=== PATIENT | male | born 1975 | race Caucasian/White ===

== ENCOUNTER 2019-11-04 07:33 | Outpatient (CLI) | payer BC, SELFPAY ==
[2019-11-10 18:37] LABS: SARS-CoV-2 RNA Undetected (Undetected)
== END 2019-11-04 07:53 ==
PROVIDERS: PCP Family Medicine; Visit Provider Family Medicine
DX: Z11.59 Encounter for screening for other viral diseases (principal)
CPT/HCPCS: U0003

== ENCOUNTER 2020-10-25 10:25 | Outpatient (REF) | payer OTHER, SELFPAY ==
[2020-10-25 12:40] LABS: Abs Immature Grans 0.02 10^3/uL (0.0-0.06); Absolute Basophil Count 0.07 10^3/uL (0.0-0.2); Absolute Lymphocyte Count 2.07 10^3/uL (1.2-3.4); Absolute Monocyte Count 0.63 10^3/uL (0.1-0.8); Absolute Neutrophil Count 5.55 10^3/uL (1.2-6.7); Basophils % 0.8; Eosinophils % 1.2; HCT 46.8 % (40.0-50.0); HGB 15.4 g/dL (13.5-17.5); Immature Grans % 0.2; Lymphocytes % 24.5; MCH 33.3 pg (27.0-33.0); MCHC 32.9 % (32.0-36.0); MCV 101.3 fL (80-95); MPV 11.3 fL (8.0-11.0); Monocytes % 7.5; Neutrophils % 65.8; Nucleated RBC 0 %; Platelet Count 230 10^3/uL (130-400); RBC 4.62 10^6/uL (4.36-5.78); RDW 12.7 % (11.8-14.1); RDW-SD 47.8 fL; WBC 8.44 10^3/uL (4.4-10.8)
[2020-10-25 12:55] LABS: ALT 43 U/L (16-63); AST 15 U/L (15-37); Alkaline Phosphatase 96 U/L (46-116); Anion Gap 9.5 mmol/L (3-11); BUN 13 mg/dL (7-18); Bilirubin, Total 0.4 mg/dL (0.2-1.0); CO2 28.5 mmol/L (21.0-32.0); Calcium 9.2 mg/dL (8.5-10.1); Calculated LDL 112 mg/dL (<100); Chloride 105 mmol/L (98-107); Cholesterol 165 mg/dL (<200); Glucose 97 mg/dL (74-106); HDL Cholesterol 40 mg/dL (40-60); Potassium 4.3 mmol/L (3.5-5.1); Sodium 143 mmol/L (136-145); Total Protein 7.4 g/dL (6.4-8.2); Triglyceride 68 mg/dL (<150)
[2020-10-25 13:12] LABS: INR 0.9 (0.9-1.1); PTT Activated 26.4 sec (21.0-27.5); Prothrombin Time 9.3 sec (9.3-11.0)
[2020-10-25 13:27] LABS: Hemoglobin A1C 5.7 % (<5.7)
[2020-10-26 10:26] LABS: Vitamin B12 367 pg/mL (193-986)
[2020-10-26 10:35] LABS: HIV-1/2 Ag & Ab Screen Negative (Negative)
[2020-10-26 17:21] LABS: Folate >24.0 ng/mL (See Note)
== END 2020-10-25 10:26 | disposition home or self-care (01) ==
LOC: LBN 10:25
PROVIDERS: PCP Nurse Practitioner Family; Visit Provider Nurse Practitioner Family
DX: Z00.00 Encounter for general adult medical examination without abnormal findings (principal); Z13.1 Encounter for screening for diabetes mellitus; Z13.220 Encounter for screening for lipoid disorders; I10 Essential (primary) hypertension; R58 Hemorrhage, not elsewhere classified
CPT/HCPCS: 80053; 80061; 87389; 82607; 82746; 83036; 85025; 85610; 85730

== ENCOUNTER 2021-04-05 18:33 | Outpatient (REF) | payer OTHER, SELFPAY ==
[2021-04-07 01:13] LABS: COVID-19 RT-PCR UVMMC Result Negative (Negative)
== END 2021-04-05 18:34 | disposition home or self-care (01) ==
LOC: LBN 18:33
PROVIDERS: PCP Nurse Practitioner Family; Visit Provider Nurse Practitioner Family
DX: Z20.822 Contact with and (suspected) exposure to COVID-19 (principal)
CPT/HCPCS: U0003

== ENCOUNTER 2021-05-31 15:21 | Outpatient (REF) | payer OTHER, SELFPAY ==
[2021-06-02 01:13] LABS: COVID-19 RT-PCR UVMMC Result Negative (Negative)
== END 2021-05-31 15:22 | disposition home or self-care (01) ==
LOC: LBN 15:21
PROVIDERS: PCP Nurse Practitioner Family; Visit Provider Nurse Practitioner Family
DX: Z20.822 Contact with and (suspected) exposure to COVID-19 (principal)
CPT/HCPCS: U0003

== ENCOUNTER 2021-07-15 18:39 | Outpatient (REF) | payer OTHER, SELFPAY ==
[2021-07-16 20:19] LABS: COVID-19 RT-PCR UVMMC Result Negative (Negative)
== END 2021-07-15 18:40 | disposition home or self-care (01) ==
LOC: LBN 18:39
PROVIDERS: PCP Nurse Practitioner Family; Visit Provider Physician Assistant Medical
DX: Z20.822 Contact with and (suspected) exposure to COVID-19 (principal)
CPT/HCPCS: U0003

== ENCOUNTER 2021-07-16 05:58 | Day surgery (SDC) | payer OTHER, SELFPAY ==
[2021-07-16 06:25] VITALS: BP 149/95; PULSE 71; RESP 16; TEMP 37; O2SAT 99
[2021-07-16 06:38] LABS: Source Nasal/Nares
[2021-07-16] MEDS: Lactated Ringers 1,000 ML 80 ML IV (06:49)
--- NOTE | 2021-07-16 06:59 | W.ANESPRE ---
General Info Date of Service Date Performed: 07/16/21 Height: 5 ft 11 in Weight: 1121.8 kg Body Mass Index (BMI): 344.9 Surgical Procedure: Operation Date: 07/16/21 07:40 Proposed Procedure Side Surgeon p Wrist ECTR Right David Ceron MD Meds Allergies and Home Medications Allergies Allergy/AdvReac Type Severity Reaction Status Date / Time succinylcholine AdvReac Pseudocholinesterase Verified 07/16/21 07:02 Deficiency Home Medication Medication Instructions Recorded propranolol 10 mg tablet 10 mg PO BID #30 tab 04/29/21 amlodipine 5 mg tablet 5 mg PO DAILY #90 tab 07/11/21 valacyclovir 1 gram tablet 1,000 mg PO TID PRN 07/15/21 Current Visit Medications: Current Medications Generic Name Dose Route Start Last Admin Trade Name Freq PRN Reason Stop Dose Admin Ringer's Solution 1,000 mls @ 80 mls/hr 07/16/21 06:00 07/16/21 06:49 IV 07/25/21 23:59 80 mls/hr INFUSION TRICIA Administration Cefazolin Sodium/Dextrose 2 gm in 50 mls @ 100 mls/hr 07/16/21 06:00 Ancef Duplex IVPB 07/16/21 23:59 PREOP TRICIA IV Miscellaneous Supplies 1 each 07/16/21 06:00 Iv Access IV 07/25/21 23:59 DIRECTED TRICIA Sodium Chloride 0 ml 07/16/21 06:00 Normal Saline Flush 10 Ml Syr IV 07/25/21 23:59 PRN PRN Sodium Chloride 0 ml 07/16/21 06:00 Normal Saline 10 Ml Vial IJ 07/25/21 23:59 DIRECTED PRN Sterile Water 0 ml 07/16/21 06:00 Water,Injection,Sterile 10 Ml Vial IJ 07/25/21 23:59 DIRECTED PRN PFSH Active Problems Active Problems: Problem Status Onset Code Essential hypertension I10 Hyperlipidemia E78.5 Prediabetes R73.03 Bilateral carpal tunnel syndrome G56.03 Cubital tunnel syndrome on left G56.22 Medical History Medical History (Updated 07/16/21 @ 06:41 by Jasmin Mullins) Cubital tunnel syndrome on right Herpes zoster Frequent episodes from [id number], about 4/year 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 Surgical History Surgical History H/O right inguinal hernia repair S/P eye surgery Right eye for strabismus Tobacco Smoking/Tobacco Use Status: Former Tobacco Use Alcohol Alcohol Intake: current Alcohol intake frequency: a few times a month Alcohol type: beer Substance Use Substance use: Never Substance use type: does not use Vital Signs and Lab Results Vital Signs Most Recent Vital Signs in EMR: Most Recent Vital Signs Temp Pulse Resp BP Pulse Ox 37.0 C 71 16 149/95 H 99 07/16/21 06:25 07/16/21 06:25 07/16/21 06:25 07/16/21 06:25 07/16/21 06:25 Lab Results Blood Type / Crossmatch: No Data to Display Complete Blood Count: No Data to Display Complete Metabolic Panel: No Data to Display Liver Function Panel: No Data to Display Coagulation Panel: No Data to Display Cardiac Panel: No Data to Display Arterial Blood Gas: No Data to Display Venous Blood Gas: No Data to Display Pancreas Panel: No Data to Display Thyroid Panel: No Data to Display Infectious Disease: Coronavirus 2019 Source Nasal/Nares 07/16/21 06:30 07/16/21 Blood Cultures: No Data to Display Toxicology Panel: No Data to Display Anesthesia Assessment and Plan Anesthesia History Personal History: Pseudocholinesterase Deficiency Family History: No Family History of Anesthesia Complications Exercise Tolerance Exercise Tolerance: Metabolic Equivalents>4 Pertinent Negatives Pertinent Negatives: No Symptoms of GERD, No Major Cardiovascular Symptoms or Complaints, No Major Pulmonary Symptoms or Complaints and No History of CVA/TIA Cardiac & Pulmonary Exam Cardiac Exam: Normal S1/S2 Heart Sounds Pulmonary Exam: Clear Bilateral Breath Sounds Implantable Cardiac Device Does patient have a Pacemaker or an ICD?: No Airway Exam Known Difficult Airway: No Mallampati Class: 1 Mouth Opening: Normal (> 3cm) Thyromental Distance: Greater than 3 cm Neck Range of Motion: Full ROM Neck Circumference: Normal Teeth Condition: Normal Dentition ASA Classification ASA Score: ASA 2 Emergency Case?: No NPO Status NPO Status: NPO Clears >2 hours, Solids >8 hours Anesthesia Plan Resuscitation Status: Full Code Anesthesia Technique: General Anesthesia Airway Planned: Natural Airway Monitors Used: Standard Monitors
[2021-07-16 07:04] VITALS: BMI 344.9
[2021-07-16 07:16] LABS: COVID-19 PCR Negative (Negative)
--- NOTE | 2021-07-16 07:21 | HPE_ITS ---
Assessment and Plan Assessment and plan (1) Bilateral carpal tunnel syndrome: Status: Chronic Assessment and plan: Jeremy is a 46-year-old who has carpal tunnel syndrome on both sides. Is here today for endoscopic carpal tunnel release of the right side. Once again I reviewed the surgery with him in detail and his questions were answered. I discussed the risk of the procedure to include bleeding, infection, pain, stiffness, damage to nerves and vessels, damage to muscles and tendons, injury to the nerve, need for repeat procedures, incomplete release. Despite these risk, he elects to proceed. History of Present Illness Narrative: Jeremy is a 46-year-old who is here today for his right carpal tunnel syndrome. Please see the previous office note for complete detailed history. He has diagnosed carpal tunnel syndrome on the right side. He is here for carpal tunnel release. Review of Systems All systems reviewed & are unremarkable except as noted in HPI and below PFSH All Active Problems Essential hypertension (Chronic) Hyperlipidemia (Chronic) Prediabetes (Chronic) Bilateral carpal tunnel syndrome (Chronic) Cubital tunnel syndrome on left (Acute) Medical History Cubital tunnel syndrome on right Herpes zoster Frequent episodes from [id number], about 4/year Right-sided Block's palsy Surgical History H/O right inguinal hernia repair S/P eye surgery Right eye for strabismus Family History Mother , 67 of metastatic bresat cancer Breast cancer Father Multiple sclerosis Brother Substance abuse Alcohol abuse Brother Substance abuse Alcohol abuse Daughter No problems noted. 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 [employer] Do you think of yourself as: lesbian/kaufman/homosexual What is your relationship status?: Panel score (0-1 are the most socially isolated patients): 1 Do you feel safe at home: Yes Do you feel safe in your relationship?: Yes Meds Allergies and Home Medications Allergies Allergy/AdvReac Type Severity Reaction Status Date / Time succinylcholine AdvReac Pseudocholinesterase Verified 07/16/21 07:02 Deficiency Home Medications Medication Instructions Recorded Confirmed Type propranolol 10 mg tablet 10 mg PO BID #30 tab 04/29/21 07/16/21 Rx amlodipine 5 mg tablet 5 mg PO DAILY #90 tab 07/11/21 07/16/21 Rx valacyclovir 1 gram tablet 1,000 mg PO TID PRN 07/15/21 07/16/21 History Exam Resp Effort & Inspection: normal respiratory effort Auscultation: clear to auscultation bilaterally Cardio Rate: regular rate Rhythm: regular rhythm Results Labs Labs: Laboratory Results - last 24 hr 07/16/21 06:30 COVID-19 Source Nasal/Nares SARS-CoV-2 (PCR) Negative Last Vital Signs Temp 37.0 C 07/16/21 06:25 Pulse 71 07/16/21 06:25 Resp 16 07/16/21 06:25 BP 149/95 H 07/16/21 06:25 Pulse Ox 99 07/16/21 06:25
--- NOTE | 2021-07-16 07:24 | W.PM.DSUDISC ---
Discharge Plan Disposition Patient Disposition: HOME Condition: Good Discharge Details Reason For Visit: Right Carpal Tunnel SYndrome Attending Provider: David Ceron Primary Care Provider: Destiny Aguilar Home Meds and New Rx's Prescriptions: New acetaminophen 500 mg tablet 1,000 mg PO Q8H PRN (Reason: pain) Qty: 60 3RF ibuprofen 600 mg tablet 600 mg PO TID PRN (Reason: pain) Qty: 60 3RF Continued propranolol 10 mg tablet 10 mg PO BID Qty: 30 5RF amlodipine 5 mg tablet 5 mg PO DAILY Qty: 90 4RF valacyclovir 1 gram tablet 1,000 mg PO TID PRN0RF Rx Instructions: Take 1 tablet by mouth three times a day for 7 days Discharge Instructions Stand Alone Forms: Jie Croft Tunnel Release Activity:: Elevate Remove Dressings/Wound Care:: 48 hours Shower/Bathe:: 48 hours Diet:: As Tolerated Discharge Orders Discharge Orders: Discharge Order (Routine); Ordered 07/16/21 Ordered By: David Ceron DS: Diagnosis Discharge Diagnosis (1) Bilateral carpal tunnel syndrome: Status: Chronic
[2021-07-16] MEDS: ceFAZolin 2 GM/50 ML BAG IVPB (07:29)
[2021-07-16] MEDS: Sodium Bicarbonate 50 MEQ/50 ML VIAL (07:43)
--- NOTE | 2021-07-16 07:49 | W.ANESPOSTOP ---
Postoperative Evaluation Date, Time and Location Date Performed: 07/16/21 Time Performed: 07:49 Patient Location: Day Surgery Unit Vital Signs Most Recent Imported Vital Signs: Most Recent Vital Signs Temp Pulse Resp BP Pulse Ox 37.0 C 71 16 149/95 H 99 07/16/21 06:25 07/16/21 06:25 07/16/21 06:25 07/16/21 06:25 07/16/21 06:25 Most Recent Manually Entered Vital Signs: Adult Blood Pressure: 110/63 Heart Rate: 66 Respirations: 10 Oxygen Saturation (%): 95 Temperature (C): 36.3 C Pain Score (0-10 Scale): 0 Pain Score Most Recent Pain Score: Most Recent Pain Score Pain Level 0 07/16/21 06:25 Assessment Mental Status: Awake (Alert & Oriented to Patient Baseline) Airway and Respiratory Function: Patent airway with normal (patient baseline) respiratory exam Cardiovascular Function: Hemodynamically Stable Hydration Status: Adequately Hydrated Nausea & Vomiting: No Nausea or Vomiting Pain: Pt. Denies Any Pain Peripheral Nerve Block: Patient did not receive a nerve block
[2021-07-16 07:50] VITALS: BP 110/63; PULSE 66; RESP 10; TEMPC 36.3; O2SAT 95
[2021-07-16 07:52] VITALS: BP 110/63; PULSE 66; RESP 16; TEMP 36.7; O2SAT 95
[2021-07-16 08:19] VITALS: BP 135/89; PULSE 63; RESP 16; TEMP 37; O2SAT 98
--- NOTE | 2021-07-16 09:25 | ROE_ITS ---
Date of service: 07/16/21 Time of Service: 07:40 Operative Note Operative Note PRE-OP DIAGNOSIS: Right Carpal Tunnel Syndrome POST-OP DIAGNOSIS: same PROCEDURE: Right Endoscopic Carpal Tunnel Release SURGEON: David Ceron ANESTHESIA TYPE: General:No Airway Refer to Anesthesia Record ESTIMATED BLOOD LOSS: 0 PATHOLOGY: none sent TOURNIQUET TIME: 4 COMPLICATIONS: None Patient was transported to: same day Patient's condition: stable Indications: I have seen Jeremy in clinic for symptoms of carpal tunnel syndrome. The numbness, tingling, and pain limited function. Clinical exam findings with nerve conduction tests confirmed the diagnosis of carpal tunnel syndrome. Nonoperative measures such as bracing, time, activity modifications had been tried but disability and pain persisted. I discussed carpal tunnel release with the patient. I reviewed the risks of the procedure to include, but not limited to, bleeding, infection, pain, stiffness, incomplete release, damage to nerves or vessels, persistent numbness, recurrence. Despite these risks, the patient elected to proceed. Findings: There was tightened carpal tunnel. This was dilated and released successfully with the endoscopic with increased space within the tunnel. The antebrachial fascia was released proximally freeing the median nerve at the wrist. Procedure Description: Jeremy was greeted in the preoperative holding area where the correct side was identified and marked. The consent was reviewed with the patient and signed. The history and physical was updated. All questions were answered. Jeremy was taken back to the operating room. The patient was placed into the supine position on the operating room table with the right arm on an arm board. A nonsterile tourniquet was placed high onto the arm. All bony prominences were well padded. Prophylactic antibiotics in the form of Cefazolin were administered. The right arm was then prepped with Chloraprep and draped in a standard fashion with stockinette and extremity drape. A timeout to confirm correct identity, side and site, procedure, allergies, anesthesia, and medical concerns was performed. The surgical site was marked in the volar wrist creases in line with the radial border of the fourth ray. This area was anesthetized with approximately 6cc of 1% Lidocaine. The limb was then exsanguinated with an Esmarch. The skin was incised with a 15 blade, approximately 1cm. The skin only was cut and the deeper tissue was dissected bluntly with a tenotomy scissor, avoiding passing nerve and venous structures. The fascia was penetrated and opened bluntly. A two-prong skin hook was placed under this proximal fascial edge. A series of hamate finders were used to identify and dilate the carpal tunnel. Synovial elevator was used to free synovial attachments to the underside of the transvers e carpal ligament. My thumb was kept in the palm to henrry the distal extent of the carpal tunnel and correctly position the hand. The Microaire endoscope was inserted without difficulty and without resistance. Excellent visualization showed horizontally running fibers of the transverse carpal ligament (TCL). The distal extent of the TCL was visualized and the end of the scope palpated with the thumb. The blade was elevated and withdrawn from distal to proximal. The TCL was split into two flaps. The endoscope was reinserted to confirm complete release and any remnant ligament was incised. The scope was withdrawn and the proximal aspect of the carpal tunnel was grossly inspected and appeared release with the median nerve visible. The antebrachial fascia at the level of the wrist was then freed from the overlying skin and then the underlying median nerve with blunt dissection. This was transected longitudinally for about 3cm proximal to the wrist incision. The wound was then irrigated with easy flow of irrigant distally and proximally. The incision was closed with a single 4-0 Nylon suture. The wound was dressed with Xeroform, Gauze, Kerlix and Srikanth. The tourniquet was deflated with the initial dressing and held with some pressure. Blood flow returned easily to all digits with capillary refill less than 2 seconds. The patient tolerated the procedure well and was returned to the Same Day Surgery area in a stable condition suffering no known complication.
== END 2021-07-16 08:36 | disposition home or self-care (01) ==
PROVIDERS: PCP Nurse Practitioner Family; Visit Provider Student in an Organized Health Care Education/Training Program
PROC: 01N54ZZ Release Median Nerve, Percutaneous Endoscopic Approach (ICD-10-PCS; CPT 29848; principal; 2021-07-16 07:30)
DX: G56.03 Carpal tunnel syndrome, bilateral upper limbs (principal); R73.03 Prediabetes; E78.5 Hyperlipidemia, unspecified; I10 Essential (primary) hypertension
CPT/HCPCS: 29848; 87635; J0690; J2001

== ENCOUNTER 2022-05-26 12:40 | Outpatient (CLI) | payer OTHER, SELFPAY ==
--- NOTE | 2022-05-26 09:30 | DI.RAD_ITS ---
Exam(s) XR HIP RT COMPLETE AP PELVIS EXAM: XR HIP RT COMPLETE AP PELVIS CLINICAL HISTORY: Rt hip pain, M25.551, twisted and felt like hip dislocated, ? pelvic fx. TECHNIQUE: 2D digital imaging was performed of the right hip. Two images were obtained. AP pelvis a nd lateral right hip views were obtained. COMPARISON: No exams were available for comparison FINDINGS: BONES: No acute fracture is present. No bony destructive lesion is seen. JOINTS: No dislocation present. There is mild narrowing of the superior joint spaces of the hips bila terally. SOFT TISSUE: Vascular calcifications are present. IMPRESSION: No acute fracture or dislocation. DATA REPOSITORY: RADIATION DOSE DELIVERED:
== END 2022-05-26 13:00 ==
LOC: DI 12:41
PROVIDERS: PCP Nurse Practitioner Family; Visit Provider Family Medicine
DX: M25.551 Pain in right hip (principal)
CPT/HCPCS: 73502

== ENCOUNTER 2022-07-02 13:47 | Outpatient (REF) | payer OTHER, SELFPAY ==
[2022-07-02 13:57] LABS: ALT 68 U/L (16-63); AST 27 U/L (15-37); Alkaline Phosphatase 95 U/L (46-116); Anion Gap 9.5 mmol/L (3-11); BUN 12 mg/dL (7-18); Bilirubin, Total 0.4 mg/dL (0.2-1.0); CO2 27.5 mmol/L (21.0-32.0); Calcium 9.4 mg/dL (8.5-10.1); Chloride 106 mmol/L (98-107); Estimated GFR 92.26 (mL/min/1.73m2); Glucose 98 mg/dL (74-106); Hemoglobin A1C 5.9 % (<5.7); Potassium 4.4 mmol/L (3.5-5.1); Sodium 143 mmol/L (136-145); Total Protein 7.4 g/dL (6.4-8.2)
[2022-07-03 10:28] LABS: HIV-1/2 Ag & Ab Screen Negative (Negative)
== END 2022-07-02 13:48 | disposition home or self-care (01) ==
LOC: LBN 13:47
PROVIDERS: PCP Nurse Practitioner Family; Visit Provider Nurse Practitioner Family
DX: I10 Essential (primary) hypertension (principal); R73.03 Prediabetes; Z11.4 Encounter for screening for human immunodeficiency virus [HIV]
CPT/HCPCS: 80053; 87389; 83036; 84443

== ENCOUNTER 2023-09-14 10:52 | Outpatient (CLI) | payer OTHER, SELFPAY ==
[2023-09-14 11:55] LABS: Bilirubin Negative (Negative); Blood Negative (Negative); Clarity Turbid (Clear); Glucose Negative (Negative); Ketones Negative (Negative); Leukocyte Esterase Negative (Negative); Nitrite Negative (Negative); Specific Gravity 1.025 (1.005-1.025); Urobilinogen 0.2 mg/dL (Up to 0.2)
== END 2023-09-14 10:53 | disposition home or self-care (01) ==
LOC: LBO 10:53
PROVIDERS: PCP Nurse Practitioner Family; Visit Provider Family Medicine
DX: R30.0 Dysuria (principal); R10.2 Pelvic and perineal pain
CPT/HCPCS: 81003

== ENCOUNTER → 2023-09-25 00:25 | Outpatient (CLI) | payer OTHER, SELFPAY ==
--- NOTE | 2023-09-25 06:30 | DI.CT_ITS ---
Exam(s) CT ABDOMEN PELVIS W EXAM: CT ABDOMEN PELVIS W CLINICAL HISTORY: inguinal hernia?, CHRONIC PELVIC PAIN, R10.2, G89.29. TECHNIQUE: Imaging Protocol: Axial computed tomography images with coronal and sagittal reformatted images were created and reviewed CONTRAST MATERIAL: Intravenous: Omnipaque 350 Contrast volume:100 ml Oral: yes COMPARISON: No exams were available for comparison FINDINGS: ABDOMEN and PELVIS: Lung Bases: No acute findings. Liver: Normal density. No suspicious mass. Gallbladder and biliary tract: No radiodense calculus. No biliary dilation. Pancreas: Normal density. No abnormal calcifications or inflammatory process. No evidence of mass. Spleen: Normal. Kidneys: Normal size, contour and axis. No radiodense stones. No obstructive uropathy. No suspicious masses seen. Adrenal glands: No masses seen. Vasculature: Abdominal aorta non-dilated. Soft tissues: Fat containing left inguinal hernia. Bladder: No gross wall thickening. No calculi.No focal mass. Bowel: No obstruction. No bowel wall thickening. Appendix normal. Peritoneal cavity: No ascites. No focal collection. No mesenteric inflammatory response. Bones: Unremarkable for age. Reproductive organs: Unremarkable. Lymph nodes: No pathologically enlarged lymph nodes. IMPRESSION:: Small fatty containing left inguinal hernia. RADIATION DOSE DELIVERED: 1,575.25mGy.cm Total DLP DATA REPOSITORY: All CT scans at this facility are submitted to the National Radiology Data Registry (NRDR) Dose Index Registry (DIR) with the [employer] (ACR). RADIATION OPTIMIZATION: All CT scans at this facility use at least one of these dose optimization te chniques: automated exposure control; mA and/or kV adjustment per patient size (includes targeted exa ms where dose is matched to clinical indication); or iterative reconstruction.
[2023-09-25] MEDS: Barium Sulfate 2% W/V-Berry Smoothie 450 ML BTL PO ×2 (08:56→08:57)
[2023-09-25 09:22] LABS: Abs Immature Grans 0.02 10^3/uL (0.0-0.06); Absolute Basophil Count 0.07 10^3/uL (0.0-0.2); Absolute Eosinophil Count 0.15 10^3/uL (0.0-0.7); Absolute Monocyte Count 0.64 10^3/uL (0.1-0.8); Basophils % 0.9 %; Eosinophils % 1.9 %; HCT 50.9 % (40.0-50.0); HGB 16.8 g/dL (13.5-17.5); Immature Grans % 0.3 %; Lymphocytes % 21.6 %; MCH 33.7 pg (27.0-33.0); MCV 102 fL (80-95); MPV 10.2 fL (8.0-11.0); Monocytes % 8.1 %; Neutrophils % 67.2 %; Platelet Count 212 10^3/uL (130-400); RBC 4.99 10^6/uL (4.36-5.78); RDW 13.2 % (11.8-14.1); RDW-SD 50.3 fL; WBC 7.88 10^3/uL (4.4-10.8)
[2023-09-25 09:25] LABS: ESR 12 mm/hr (0-15)
[2023-09-25 09:43] LABS: ALT 44 U/L (16-63); AST 18 U/L (15-37); Alkaline Phosphatase 104 U/L (46-116); Anion Gap 11.2 mmol/L (3-11); BUN 16 mg/dL (7-18); Bilirubin, Total 0.4 mg/dL (0.2-1.0); CO2 27.8 mmol/L (21.0-32.0); CREATININE 1.1 mg/dL (0.70-1.30); Calcium 9.1 mg/dL (8.5-10.1); Calculated LDL 114 mg/dL (<100); Chloride 104 mmol/L (98-107); Cholesterol 181 mg/dL (<200); Estimated GFR 81.78 (mL/min/1.73m2); Glucose 107 mg/dL (74-106); HDL Cholesterol 51 mg/dL (40-60); Potassium 4.2 mmol/L (3.5-5.1); Sodium 143 mmol/L (136-145); TSH (W/Ref FT4) 1.64 uIU/mL (0.36-3.74); Triglyceride 83 mg/dL (<150)
[2023-09-25 09:50] LABS: C-Reactive Protein 0.57 mg/dL (<or=0.5)
[2023-09-25 09:51] LABS: Hemoglobin A1C 5.6 % (<5.7)
[2023-09-25] MEDS: Omnipaque 350 MG/ML 100 ML BTL IJ (11:08)
[2023-09-25 18:33] LABS: PSA, Screening 1.3 ng/mL (<=3.5)
[2023-09-25 21:12] LABS: HBs Antibody, Quant 164.2 mIU/mL (See Note); Hep B Surface Ab Positive (See Note); Hepatitis B Core Antibody Negative (Negative); Hepatitis B Surface Antigen Negative (Negative)
[2023-09-25 21:16] LABS: HIV-1/2 Ag & Ab Screen Negative (Negative)
[2023-09-25 21:22] LABS: Hepatitis C Ab w Rflx HCV PCR Negative (Negative)
== END ==
PROVIDERS: PCP Nurse Practitioner Family; Visit Provider Nurse Practitioner Family
DX: R10.2 Pelvic and perineal pain (principal); G89.29 Other chronic pain; Z12.5 Encounter for screening for malignant neoplasm of prostate; Z11.59 Encounter for screening for other viral diseases
CPT/HCPCS: 36415; 80053; 80061; 84153; 85652; 86704; 86706; 86803; 87340; 87389; 74177; 83036; 84443; 85025; 86140; J3490

== ENCOUNTER 2024-11-21 09:45 | Outpatient (CLI) | payer OTHER, SELFPAY ==
[2024-11-21 13:13] LABS: Anion Gap 11.1 mmol/L (3-11); BUN 19 mg/dL (7-18); CO2 24.9 mmol/L (21.0-32.0); Calcium 9.4 mg/dL (8.5-10.1); Chloride 103 mmol/L (98-107); Estimated GFR 81.28 (mL/min/1.73m2); Glucose 104 mg/dL (74-106); Potassium 4.4 mmol/L (3.5-5.1); Sodium 139 mmol/L (136-145)
== END 2024-11-21 09:46 | disposition home or self-care (01) ==
PROVIDERS: PCP Nurse Practitioner Family; Referring Provider Nurse Practitioner Family; Visit Provider Nurse Practitioner Family
DX: I10 Essential (primary) hypertension (principal)
CPT/HCPCS: 36415; 80048

== ENCOUNTER 2025-02-17 11:45 | Day surgery (SDC) | payer OTHER, SELFPAY ==
--- NOTE | 2025-02-17 07:18 | W.PM.OP ---
Operative Note Operative Note PRE-OP DIAGNOSIS: Right middle trigger finger PROCEDURE: Right middle finger trigger release, CPT# 79006 SURGEON: Deni Riggins COMBINE INSPECTOR: None None ANESTHESIA TYPE: Local By Surgeon Refer to Anesthesia Record ESTIMATED BLOOD LOSS: 1 TOURNIQUET TIME: 0 COMPLICATIONS: None Patient was transported to: same day Patient's condition: stable Indications: Please see complete medical record for details. Procedure Description: In the operating room, the patient was positioned supine on the stretcher. All bony prominences were padded. Preoperative antibiotics were omitted. The correct patient, procedure, and side of the procedure were all verified prior to beginning. Local anesthesia was induced about the site with 10cc of 1% lidocaine containing epinephrine buffered with 1 cc of sodium bicarbonate. The Right hand was prepped and draped in the usual sterile fashion. Proper analgesia was confirmed. A small volar longitudinal approach was made overlying the middle finger MCP joint. Soft tissues were swept to the sides and retracted to expose the A1 ericka, which was thickened with small cysts on surface. The release was started centrally with a knife and completed at the proximal and distal margins with tenotomy scissors. Care was taken to protect the flexor tendons. The tendons were inspected and inact. Appropriate flexor tendon excursion was confirmed. The patient readily demonstrated full range of motion of the finger without triggering or mechanical sensation. The small incision was irrigated and then dried. Hemostasis was appropriate. The incision was closed using 3-0 nylon in a horizontal mattress fashion. Xeroform was applied followed by gauze and the hand was gently compressed with an Srikanth bandage. The patient tolerated local anesthesia without complication and was transferred out of the operating room in a stable condition. Date of Procedure: 02/17/25
--- NOTE | 2025-02-17 07:18 | W.PM.DSUDISC ---
Date of service: 02/17/25 Discharge Plan Disposition Patient Disposition: Home Condition: Stable Discharge Details Attending Provider: Deni Riggins Primary Care Provider: Destiny Aguilar Home Meds and New Rx's Prescriptions: Continued losartan 50 mg tablet 50 mg PO DAILY Qty: 90 3RF rosuvastatin 5 mg tablet 5 mg PO DAILY Qty: 90 4RF clotrimazole-betamethasone 1-0.05 % cream 1 applic topical BID 28 Days Qty: 45 3RF tirzepatide (weight loss) 7.5 mg/0.5 mL pen injector 7.5 mg subcut QWEEK Qty: 2 0RF Rx Instructions: for 4 weeks Discharge Instructions Additional Instructions: Surgery: Right middle finger trigger release 02/17/25 Activity: Protect hand for a few weeks. Gently increase finger motion and hand gripping to prevent stiffness. Recommend elevation to minimize swelling and discomfort. Prescriptions: None Resume home medicines, use [id number] Tylenol (acetaminophen) as needed for mild pain and ibuprofen (Motrin) or naproxen (Aleve) as needed for moderate to severe pain and swelling. Dressings: Leave dressing in place for 3 days. May then remove and leave open to air or cover incision with Band-Aid. May get wet after 5 days. Follow-up: 10-[address] Riggins Please call or text Dr. Riggins with any questions or concerns [phone] Stand Alone Forms: Casimiro [place] (DSU) Discharge Orders Discharge Orders: Discharge Order (Routine); Ordered 02/17/25 Ordered By: eMseret Ribeiro DS: Diagnosis Discharge Diagnosis (1) Trigger finger, right middle finger: Status: Chronic
[2025-02-17 12:09] VITALS: BP 132/87; PULSE 82; RESP 16; TEMP 36.7; O2SAT 98
[2025-02-17] MEDS: Lidocaine 1% Multi-Dose W/EPI 1/100,000 50 ML VIAL (13:43)
[2025-02-17] MEDS: Sodium Bicarbonate 50 MEQ/50 ML VIAL (13:44)
[2025-02-17 14:04] VITALS: BP 130/88; PULSE 76; RESP 14; TEMP 36.7; O2SAT 98
== END 2025-02-17 14:20 | disposition home or self-care (01) ==
LOC: SUR 11:45
PROVIDERS: PCP Nurse Practitioner Family; Visit Provider Student in an Organized Health Care Education/Training Program
PROC: (CPT 26055; principal; 2025-02-17 12:45)
DX: M65.331 Trigger finger, right middle finger (principal)
CPT/HCPCS: 26055; J2004

== ENCOUNTER 2025-04-12 09:13 | Outpatient (CLI) | payer OTHER, SELFPAY ==
[2025-04-12 14:52] LABS: ALT 38 U/L (10-49); AST 26 U/L (<34); Albumin 4.6 g/dL (3.2-5.0); Alkaline Phosphatase 104 U/L (46-116); Anion Gap 7.9 mmol/L (3-11); BUN 13 mg/dL (9-23); Bilirubin, Total 0.6 mg/dL (0.2-1.2); CO2 24.1 mmol/L (20.0-31.0); Calcium 9.4 mg/dL (8.3-10.6); Chloride 109 mmol/L (98-107); Cholesterol 124 mg/dL (<200); Glucose 84 mg/dL (74-106); HDL Cholesterol 46 mg/dL (>or=40); Potassium 4.1 mmol/L (3.5-5.1); Sodium 141 mmol/L (136-145); Total Protein 7.7 g/dL (5.7-8.2)
[2025-04-17 17:28] LABS: Apolipoprotein B, Serum 68 mg/dL; Beta VLDL Cholesterol Not Detected mg/dL (<15); Beta VLDL Triglycerides Not Detected mg/dL (<15); Cholesterol, Total, CDC 131 mg/dL; Chylomicron Cholesterol Not Detected; Chylomicron Triglycerides Not Detected; HDL Cholesterol, CDC 41 mg/dL (>=40); LpX Not detected; Triglycerides, CDC 76 mg/dL; VLDL Triglycerides 23 mg/dL (<120)
== END 2025-04-12 09:14 | disposition home or self-care (01) ==
LOC: LOS 09:14
PROVIDERS: PCP Nurse Practitioner Family; Visit Provider Nurse Practitioner Family
DX: I25.10 Atherosclerotic heart disease of native coronary artery without angina pectoris (principal); E78.5 Hyperlipidemia, unspecified
CPT/HCPCS: 36415; 80053; 80061; 83695; 82172; 82664